=== PATIENT | male | born 1950 | race Caucasian/White ===

== ENCOUNTER 2017-06-22 14:00 | Outpatient (RCR) | payer MEDICARE, BC | END 2017-06-22 14:30 | disposition still patient (30) | LOC: PT 14:00 | DX: M54.5 Low back pain (principal); R53.1 Weakness ==

== ENCOUNTER 2018-01-13 14:26 | Outpatient (RCR) | payer MEDICARE, BC | END 2018-04-13 | disposition home or self-care (01) | LOC: PT | DX: M54.5 Low back pain (principal) | CPT/HCPCS: G8978-GP; G8979-GP ==

== ENCOUNTER → 2019-09-22 | Outpatient (CLI) | payer MEDICARE, BC ==
[2019-09-22 12:10] LABS: EOS # 0.1 (0.04-0.40); EOS % 2.7 % (0.0-4.0); HEMATOCRIT 48.2 % (42.0-52.0); HEMOGLOBIN 16.4 g/dL (13.5-18.0); LYMPH# 2.5 (1.50-4.00); MEAN CELL VOLUME 86 fl (78-100); MEAN CORPUSCULAR HEMOGLOBIN 29 pg (27-31); MEAN CORPUSCULAR HGB CONC 34 g/dL (33-37); MEAN PLATELET VOLUME 8.2 fl (7.4-10.4); MONO # 0.5 (0.20-0.80); NEU # 1.9 (1.40-6.50); PLATELET COUNT 208 K/mm3 (130-400); RED BLOOD COUNT 5.61 M/mm3 (4.20-5.60); RED CELL DISTRIBUTION WIDTH 13.7 % (11.5-14.5); WHITE BLOOD COUNT 5.1 K/mm3 (4.8-10.8)
[2019-09-22 12:23] LABS: ALBUMIN 4.2 g/dL (3.4-4.8)
[2019-09-22 12:24] LABS: CALCIUM 9.1 mg/dL (8.3-10.5)
[2019-09-22 12:26] LABS: TOTAL PROTEIN 7.4 g/dL (6.2-8.1)
[2019-09-22 12:27] LABS: TOTAL BILIRUBIN 0.9 mg/dL (0.2-1.2)
[2019-09-22 12:33] LABS: MAGNESIUM 1.79 mg/dL (1.60-2.60)
[2019-09-22 12:39] LABS: URINE APPEARANCE CLEAR; URINE BILIRUBIN NEGATIVE (NEGATIVE); URINE COLOR YELLOW; URINE GLUCOSE NEGATIVE (NEGATIVE); URINE KETONE NEGATIVE (NEGATIVE); URINE PROTEIN(semi-quant) 3+ mg/dL (NEGATIVE); URINE UROBILINOGEN NORMAL (NORMAL)
[2019-09-22 12:40] LABS: URINE BLOOD 250 ery/uL (NEGATIVE); URINE LEUKOCYTE ESTERASE NEGATIVE (NEGATIVE); URINE MUCUS PRESENT (NOT PRESENT); URINE NITRATE NEGATIVE (NEGATIVE)
[2019-09-22 13:19] LABS: ERYTHROCYTE SEDIMENTATION RATE 5 mm/hr (0-20)
[2019-09-22 23:07] LABS: TESTOSTERONE 227 ng/dL (221-716)
[2019-09-23 00:19] LABS: CREATININE OTHER SOURCE 349 mg/dL (())
== END ==
LOC: LAB 11:49
PROVIDERS: Internal Medicine
DX: Z12.5 Encounter for screening for malignant neoplasm of prostate (principal); Z12.11 Encounter for screening for malignant neoplasm of colon; I10 Essential (primary) hypertension; E11.9 Type 2 diabetes mellitus without complications; N52.9 Male erectile dysfunction, unspecified

== ENCOUNTER → 2019-09-27 | Outpatient (CLI) | payer MEDICARE, BC | LOC: LAB 13:42 | DX: Z12.11 Encounter for screening for malignant neoplasm of colon (principal) ==

== ENCOUNTER → 2019-10-06 | Outpatient (CLI) | payer MEDICARE, BC ==
[2019-10-06 12:11] LABS: URINE COLOR YELLOW
[2019-10-06 12:12] LABS: URINE APPEARANCE HAZY; URINE BILIRUBIN NEGATIVE (NEGATIVE); URINE GLUCOSE NEGATIVE (NEGATIVE); URINE KETONE NEGATIVE (NEGATIVE); URINE PROTEIN(semi-quant) 3+ mg/dL (NEGATIVE)
[2019-10-06 12:13] LABS: URINE BLOOD 250 ery/uL (NEGATIVE); URINE LEUKOCYTE ESTERASE NEGATIVE (NEGATIVE); URINE NITRATE NEGATIVE (NEGATIVE); URINE UROBILINOGEN NORMAL (NORMAL)
[2019-10-06 12:14] LABS: URINE MUCUS PRESENT (NOT PRESENT)
== END ==
LOC: LAB 11:16
PROVIDERS: Internal Medicine
DX: E11.9 Type 2 diabetes mellitus without complications (principal); N39.0 Urinary tract infection, site not specified

== ENCOUNTER → 2019-10-13 | Outpatient (CLI) | payer MEDICARE, BC | LOC: RAD 09:50 | DX: N28.1 Cyst of kidney, acquired (principal) | CPT/HCPCS: Q9965; Q9967 ==

== ENCOUNTER → 2020-06-17 | Outpatient (CLI) | payer MEDICARE, BC ==
[2020-06-17 15:33] LABS: EOS # 0.2 (0.04-0.40); EOS % 2.1 % (0.0-4.0); HEMATOCRIT 48.5 % (42.0-52.0); HEMOGLOBIN 16.5 g/dL (13.5-18.0); LYMPH# 2.4 (1.50-4.00); MEAN CELL VOLUME 87 fl (78-100); MEAN CORPUSCULAR HEMOGLOBIN 30 pg (27-31); MEAN CORPUSCULAR HGB CONC 34 g/dL (33-37); MEAN PLATELET VOLUME 8.6 fl (7.4-10.4); MONO # 0.7 (0.20-0.80); PLATELET COUNT 228 K/mm3 (130-400); RED BLOOD COUNT 5.59 M/mm3 (4.20-5.60); RED CELL DISTRIBUTION WIDTH 13.6 % (11.5-14.5); WHITE BLOOD COUNT 8.3 K/mm3 (4.8-10.8)
[2020-06-17 15:41] LABS: URINE APPEARANCE CLEAR; URINE BILIRUBIN NEGATIVE (NEGATIVE); URINE BLOOD 50 ery/uL (NEGATIVE); URINE COLOR YELLOW; URINE GLUCOSE NEGATIVE (NEGATIVE); URINE KETONE NEGATIVE (NEGATIVE); URINE NITRATE NEGATIVE (NEGATIVE); URINE PROTEIN(semi-quant) 1+ mg/dL (NEGATIVE); URINE UROBILINOGEN NORMAL (NORMAL)
[2020-06-17 15:42] LABS: ALBUMIN 4.3 g/dL (3.4-4.8); POTASSIUM 3.9 mmol/L (3.5-5.1); URINE LEUKOCYTE ESTERASE NEGATIVE (NEGATIVE); URINE MUCUS PRESENT (NOT PRESENT)
[2020-06-17 15:43] LABS: CALCIUM 9.4 mg/dL (8.3-10.5)
[2020-06-17 15:45] LABS: TOTAL PROTEIN 7.5 g/dL (6.2-8.1)
[2020-06-17 15:47] LABS: TOTAL BILIRUBIN 0.8 mg/dL (0.2-1.2)
== END ==
LOC: LAB 15:21
PROVIDERS: Internal Medicine
DX: I10 Essential (primary) hypertension (principal); E11.9 Type 2 diabetes mellitus without complications; K90.9 Intestinal malabsorption, unspecified

== ENCOUNTER → 2020-06-18 | Outpatient (CLI) | payer MEDICARE, BC | LOC: RAD 09:45 | DX: N28.1 Cyst of kidney, acquired (principal); E11.9 Type 2 diabetes mellitus without complications; N40.0 Benign prostatic hyperplasia without lower urinary tract symptoms; I10 Essential (primary) hypertension ==

== ENCOUNTER → 2020-09-25 | Outpatient (CLI) | payer MEDICARE ==
[2020-09-25 11:37] LABS: EOS # 0.1 (0.04-0.40); EOS % 1.2 % (0.0-4.0); HEMATOCRIT 49.9 % (42.0-52.0); HEMOGLOBIN 16.8 g/dL (13.5-18.0); LYMPH# 3.3 (1.50-4.00); MEAN CELL VOLUME 86 fl (78-100); MEAN CORPUSCULAR HEMOGLOBIN 29 pg (27-31); MEAN CORPUSCULAR HGB CONC 34 g/dL (33-37); MEAN PLATELET VOLUME 8.4 fl (7.4-10.4); MONO # 0.6 (0.20-0.80); NEU # 4.5 (1.40-6.50); PLATELET COUNT 202 K/mm3 (130-400); RED BLOOD COUNT 5.82 M/mm3 (4.20-5.60); RED CELL DISTRIBUTION WIDTH 13.4 % (11.5-14.5); WHITE BLOOD COUNT 8.6 K/mm3 (4.8-10.8)
[2020-09-25 11:43] LABS: ALBUMIN 4.2 g/dL (3.4-4.8); POTASSIUM 3.7 mmol/L (3.5-5.1)
[2020-09-25 11:44] LABS: CALCIUM 9.3 mg/dL (8.3-10.5)
[2020-09-25 11:47] LABS: TOTAL BILIRUBIN 1.4 mg/dL (0.2-1.2)
[2020-09-25 11:52] LABS: MAGNESIUM 1.85 mg/dL (1.60-2.60)
[2020-09-25 12:01] LABS: URINE APPEARANCE CLEAR; URINE COLOR YELLOW
[2020-09-25 12:02] LABS: URINE BILIRUBIN NEGATIVE (NEGATIVE); URINE BLOOD 50 ery/uL (NEGATIVE); URINE GLUCOSE NEGATIVE (NEGATIVE); URINE KETONE NEGATIVE (NEGATIVE); URINE LEUKOCYTE ESTERASE NEGATIVE (NEGATIVE); URINE NITRATE NEGATIVE (NEGATIVE); URINE PROTEIN(semi-quant) TRACE mg/dL (NEGATIVE); URINE UROBILINOGEN NORMAL (NORMAL)
[2020-09-25 22:14] LABS: TESTOSTERONE 220 ng/dL (221-716)
== END ==
LOC: LAB 11:05
PROVIDERS: Internal Medicine
DX: Z12.5 Encounter for screening for malignant neoplasm of prostate (principal); Z12.11 Encounter for screening for malignant neoplasm of colon; E11.9 Type 2 diabetes mellitus without complications; K90.9 Intestinal malabsorption, unspecified; R79.89 Other specified abnormal findings of blood chemistry

== ENCOUNTER → 2020-09-30 | Outpatient (CLI) | payer MEDICARE ==
[~2020-09-30] MED LIST: AMARYL4 M1 PO; CELEBREX 200MG200 MG PO; K-TAB20 MEQ PO; NORVASC 10MG10 MG PO; SINGULAIR 110 MG/TAB PO; VITAMIN C PUR1000 MG PO; VITAMIN D31250 MCG PO; ZINC50 M3 PO
== END ==
LOC: LAB 11:04
DX: Z12.11 Encounter for screening for malignant neoplasm of colon (principal)

== ENCOUNTER → 2020-11-18 | Outpatient (CLI) | payer MEDICARE | LOC: LAB 11:33 | DX: L57.0 Actinic keratosis (principal) ==

== ENCOUNTER → 2020-12-19 | Outpatient (CLI) | payer MEDICARE | LOC: RAD 12-18 10:00 | PROVIDERS: Urology | DX: N28.1 Cyst of kidney, acquired (principal); Z90.49 Acquired absence of other specified parts of digestive tract | CPT/HCPCS: Q9967 ==

== ENCOUNTER 2021-04-25 01:38 | Emergency (ER) | payer MEDICARE ==
[~2021-04-25] VITALS: Ht 188 cm; Wt 121.4 kg
[2021-04-25] MEDS ORDERED: SINGULAIR 110 MG/TAB PO (02:08)
[2021-04-25] MEDS ORDERED: NORVASC 10MG10 MG PO (02:08)
[2021-04-25] MEDS ORDERED: K-TAB20 MEQ PO (02:09)
[2021-04-25] MEDS ORDERED: AMARYL4 M1 PO (02:09)
[2021-04-25] MEDS ORDERED: VITAMIN D31250 MCG PO (02:10)
[2021-04-25] MEDS ORDERED: ZINC50 M3 PO (02:10)
[2021-04-25] MEDS ORDERED: VITAMIN C PUR1000 MG PO (02:10)
[2021-04-25] MEDS ORDERED: CELEBREX 200MG200 MG PO (02:11)
[2021-04-25 02:14] LABS: BASO # 0.04 (0.02-0.10); EOS # 0.18 (0.04-0.40); EOS % 1.7 % (0.0-4.0); HEMATOCRIT 44.1 % (42.0-52.0); HEMOGLOBIN 15.4 g/dL (13.5-18.0); LYMPH# 3.33 (1.50-4.00); MEAN CELL VOLUME 87 fl (78-100); MEAN CORPUSCULAR HEMOGLOBIN 30 pg (27-31); MEAN CORPUSCULAR HGB CONC 35 g/dL (33-37); MEAN PLATELET VOLUME 8.6 fl (7.4-10.4); MONO # 0.77 (0.20-0.80); NEU # 6.01 (1.40-6.50); PLATELET COUNT 195 K/mm3 (130-400); RED CELL DISTRIBUTION WIDTH 13.4 % (11.5-14.5); WHITE BLOOD COUNT 10.3 K/mm3 (4.8-10.8)
[2021-04-25 02:28] LABS: ALBUMIN 4.1 g/dL (3.4-4.8); POTASSIUM 3.7 mmol/L (3.5-5.1)
[2021-04-25 02:29] LABS: CALCIUM 9.6 mg/dL (8.3-10.5)
[2021-04-25 02:31] LABS: TOTAL PROTEIN 7.1 g/dL (6.2-8.1)
[2021-04-25 02:32] LABS: TOTAL BILIRUBIN 0.6 mg/dL (0.2-1.2)
[2021-04-25 02:51] LABS: PROTHROMBIN TIME 9.9 SECONDS (9.0-12.0)
[2021-04-25 02:54] LABS: D-DIMER 0.72 mg/L FEU (0.15-0.50)
[2021-04-25 05:35] VITALS: BP 151/81
== END 2021-04-25 05:35 | disposition home or self-care (01) ==
LOC: ED 01:38
PROVIDERS: Nurse Practitioner Family
DX: N17.9 Acute kidney failure, unspecified (principal); E11.9 Type 2 diabetes mellitus without complications; I10 Essential (primary) hypertension; I47.1 Supraventricular tachycardia; E66.9 Obesity, unspecified; I25.10 Atherosclerotic heart disease of native coronary artery without angina pectoris; Z79.899 Other long term (current) drug therapy; Z79.84 Long term (current) use of oral hypoglycemic drugs; Z68.34 Body mass index [BMI] 34.0-34.9, adult
CPT/HCPCS: J0153; J7030; Q9967

== ENCOUNTER → 2021-04-29 | Outpatient (CLI) | payer MEDICARE ==
[2021-04-29 12:05] LABS: ALBUMIN 4.3 g/dL (3.4-4.8)
[2021-04-29 12:06] LABS: POTASSIUM 3.8 mmol/L (3.5-5.1)
[2021-04-29 12:10] LABS: TOTAL BILIRUBIN 1.3 mg/dL (0.2-1.2)
[2021-04-30 00:21] LABS: FOLLICLE STIMULATING HORMONE 5.4 mIU/mL (1.0-12.0); LUTENIZING HORMONE 2.1 mIU/mL (0.6-12.1); PROLACTIN AMS 42.5 ng/mL (3.5-19.4)
== END ==
LOC: LAB 11:38
PROVIDERS: Internal Medicine
DX: E11.9 Type 2 diabetes mellitus without complications (principal); K90.9 Intestinal malabsorption, unspecified; R79.89 Other specified abnormal findings of blood chemistry

== ENCOUNTER → 2021-05-01 | Outpatient (CLI) | payer MEDICARE | LOC: RAD 09:42 | DX: I47.1 Supraventricular tachycardia (principal); I36.1 Nonrheumatic tricuspid (valve) insufficiency ==

== ENCOUNTER → 2021-05-16 | Outpatient (CLI) | payer MEDICARE ==
[2021-05-16 15:23] LABS: BASO # 0.04 K/mm3 (0.02-0.10); EOS % 0.8 % (0.0-4.0); LYMPH# 2.46 K/mm3 (1.50-4.00); MEAN CELL VOLUME 88 fl (78-100); MEAN CORPUSCULAR HEMOGLOBIN 30 pg (27-31); MEAN CORPUSCULAR HGB CONC 34 g/dL (33-37); MEAN PLATELET VOLUME 8.3 fl (7.4-10.4); MONO # 0.71 K/mm3 (0.20-0.80); NEU # 8.57 K/mm3 (1.40-6.50); PLATELET COUNT 210 K/mm3 (130-400); RED BLOOD COUNT 5.37 M/mm3 (4.20-5.60); RED CELL DISTRIBUTION WIDTH 13.3 % (11.5-14.5); WHITE BLOOD COUNT 11.9 K/mm3 (4.8-10.8)
[2021-05-16 15:38] LABS: ALBUMIN 4.1 g/dL (3.4-4.8); POTASSIUM 3.7 mmol/L (3.5-5.1)
[2021-05-16 15:39] LABS: CALCIUM 10.1 mg/dL (8.3-10.5); PROTHROMBIN TIME 10.3 SECONDS (9.0-12.0)
[2021-05-16 15:42] LABS: TOTAL BILIRUBIN 1.4 mg/dL (0.2-1.2)
[2021-05-16 15:47] LABS: MAGNESIUM 2.01 mg/dL (1.60-2.60)
[2021-05-16 15:56] LABS: URINE APPEARANCE HAZY; URINE BILIRUBIN NEGATIVE (NEGATIVE); URINE BLOOD NEGATIVE (NEGATIVE); URINE COLOR YELLOW; URINE GLUCOSE NEGATIVE (NEGATIVE); URINE KETONE NEGATIVE (NEGATIVE); URINE LEUKOCYTE ESTERASE TRACE (NEGATIVE); URINE MUCUS PRESENT (NOT PRESENT); URINE NITRATE NEGATIVE (NEGATIVE); URINE PROTEIN(semi-quant) 1+ mg/dL (NEGATIVE); URINE UROBILINOGEN NORMAL (NORMAL)
== END ==
LOC: RAD 14:41
PROVIDERS: Internal Medicine
DX: Z01.818 Encounter for other preprocedural examination (principal)

== ENCOUNTER 2021-06-06 13:48 | Outpatient (RCR) | payer MEDICARE | END 2021-07-02 17:00 | disposition home or self-care (01) | LOC: PT 13:48 | DX: M17.12 Unilateral primary osteoarthritis, left knee (principal) ==

== ENCOUNTER 2021-07-18 10:52 | Emergency (ER) | payer MEDICARE ==
[~2021-07-18] VITALS: Wt 121.4 kg
[2021-07-18 12:03] LABS: URINE APPEARANCE CLEAR; URINE COLOR YELLOW
[2021-07-18 12:04] LABS: URINE BILIRUBIN NEGATIVE (NEGATIVE); URINE BLOOD TRACE (NEGATIVE); URINE GLUCOSE NEGATIVE (NEGATIVE); URINE KETONE NEGATIVE (NEGATIVE); URINE LEUKOCYTE ESTERASE NEGATIVE (NEGATIVE); URINE MUCUS PRESENT (NOT PRESENT); URINE NITRATE NEGATIVE (NEGATIVE); URINE PROTEIN(semi-quant) 2+ mg/dL (NEGATIVE); URINE UROBILINOGEN NORMAL (NORMAL); URINE WBC 0-1 /hpf (0-3)
[2021-07-18 12:22] LABS: HEMATOCRIT 45.7 % (42.0-52.0); HEMOGLOBIN 15.1 g/dL (13.5-18.0); LYMPH# 1.11 K/mm3 (1.50-4.00); MEAN CELL VOLUME 89 fl (78-100); MEAN CORPUSCULAR HEMOGLOBIN 29 pg (27-31); MEAN CORPUSCULAR HGB CONC 33 g/dL (33-37); MEAN PLATELET VOLUME 9.3 fl (7.4-10.4); MONO # 0.35 K/mm3 (0.20-0.80); NEU # 7.96 K/mm3 (1.40-6.50); PLATELET COUNT 181 K/mm3 (130-400); RED BLOOD COUNT 5.16 M/mm3 (4.20-5.60); RED CELL DISTRIBUTION WIDTH 12.8 % (11.5-14.5); WHITE BLOOD COUNT 9.5 K/mm3 (4.8-10.8)
[2021-07-18 12:27] LABS: ALBUMIN 3.8 g/dL (3.4-4.8); POTASSIUM 3.4 mmol/L (3.5-5.1); SODIUM 140 mmol/L (136-145)
[2021-07-18 12:28] LABS: CALCIUM 9.1 mg/dL (8.3-10.5)
[2021-07-18 12:29] LABS: GLUCOSE 151 mg/dL (75-110); TOTAL PROTEIN 6.7 g/dL (6.2-8.1)
[2021-07-18 12:30] LABS: CARBON DIOXIDE 19 mmol/L (23-31)
[2021-07-18 12:31] LABS: TOTAL BILIRUBIN 0.6 mg/dL (0.2-1.2)
[2021-07-18 12:35] LABS: AST-SGOT 22 U/L (5-34)
[2021-07-18 12:36] LABS: ALT/SGPT 31 U/L (0-55)
[2021-07-18 12:44] LABS: TROPONIN-I < 0.03 ng/mL (<0.030)
[2021-07-18 12:53] LABS: D-DIMER 1.26 mg/L FEU (0.15-0.50)
[2021-07-18 16:30] VITALS: BP 154/92
== END 2021-07-18 16:30 | disposition other institution (70) ==
LOC: ED 10:52
PROVIDERS: Nurse Practitioner
DX: U07.1 COVID-19 (principal); J12.82 Pneumonia due to coronavirus disease 2019; E11.9 Type 2 diabetes mellitus without complications; I10 Essential (primary) hypertension; E66.9 Obesity, unspecified; Z79.84 Long term (current) use of oral hypoglycemic drugs; Z79.899 Other long term (current) drug therapy
CPT/HCPCS: J1100; J1956; J3480; Q9967

== ENCOUNTER 2021-07-18 16:17 | Inpatient (IN) | payer MEDICARE ==
[~2021-07-18] VITALS: Ht 180.3 cm; Wt 118.4 kg
--- NOTE | 2021-07-18 19:52 | NUR ---
PT TURNS TIMBER DEADENER LIGHT TO ALERT NURSING THAT IV PUMP IS ALARMING. ASSESMENT PREFORMED. PT REQUEST TO HAVE URNAL DUMPED AN HE NEEDS TO USE THE TOLIET. 400CC PALE CLEAR URINE OUT AT THIS TIME. PT IS OFFERED TYLENOL BUT REFUSES IT SAYING HE HAS TAKEN TO MUCH TYLENOL LATLEY AND HAD NO PAIN AT THIS TIME. BEFORE LEAVING ROOM PT DENIES ANY NEEDS AT THIS TIME.
--- NOTE | 2021-07-18 21:04 | NUR ---
REPORTED CKPG=[id number] SANCHEZ, RECIVED OREDERS FOR 4 UNITS INSULIN
[2021-07-18 22:15] VITALS: BP 160/90
[2021-07-19 02:15] VITALS: BP 153/85
--- NOTE | 2021-07-19 04:34 | NUR ---
SaO2 alarm sounding monitor shows 85%. Enetered pt room and simple mask he had been wearing is on his forehead and not in place. Pt is woken up at this time, he states "I forgot to put it back down after I got a drink." Offered to put a nasal canula on pt that way he doesnt have to remeber to put his O2 back on. Pt refuses to let nurse remove simple mask and replace it with nasal canula. Attempted to explain to pt that he would need to frame changer to nasal canula at some point, pt showes no intrest at this time. After O2 was replace SaO2= 93%
[2021-07-19 05:55] VITALS: BP 161/63
--- NOTE | 2021-07-19 07:00 | NUR ---
REPORT RECEVIED FROM BRANDY DURAN. PATIENT IS CURRENTLY RESTING IN BED WITH EYES CLOSED. BED IN LOWEST LOCKED POSTION. CALL LIGHT WITHIN REACH.
[2021-07-19 10:11] VITALS: BP 162/96
--- NOTE | 2021-07-19 11:00 | NUR ---
PATIENT PLEASENT AND COOPERATIVE WITH CARES. KATHINET DENIES SOB OR TROUBLE BREATHING WHILE RESTING. PATIENT DOES OFFER COMPLAINT OF SOB UPON WALKING TO BATHROOM. PATIENT O2 REAMINS STABLE AT 92% ON 6L VIA MASK. PATIENT IS USING NASAL CANULA FOR MEALS AND MASK AT ALL OTHER TIMES. PATIENT DENIES OTHER NEEDS OR COMPLAINTS AT THIS TIME. PATIENT IS CURRENTLY RESTING IN BED WITH IPAD. BED IN LOWEST LOCKED POSTION. CALL LIGHT WITHIN REACH.
--- NOTE | 2021-07-19 13:00 | NUR ---
PATIENT RESTING IN BED WITH TV ON. PATIENT REQUESTED TO REMAIN ON NASAL CANULA AFTER MEAL. PATIENT O2 REAMINS STABLE AT 92% ON 6L. PATIENT OFFERS NO NEEDS OR COMPLAINTS AT THIS TIME. BED IN LOWEST LOCKED POSTION, CALL LIGHT WITHIN REACH.
[2021-07-19 14:00] VITALS: BP 154/78
--- NOTE | 2021-07-19 16:14 | NUR ---
Pt awake and alert and sitting up on side of bed for comfort, orthopneic; oxygen @ 6 L/min by mask. Denies discomfort except for dry and chaffed lips. Will seek order for lip balm. IV Levaquin administered & infusing at this time. Call light in reach and pt understands use. No requests.
[2021-07-19 17:44] VITALS: BP 164/72
--- NOTE | 2021-07-19 19:00 | NUR ---
Report received from Ketty KENNEDY.
--- NOTE | 2021-07-19 19:27 | NUR ---
FS glucose 304 ac supper. Sliding scale insulin new order received & admin. Loading dose Remdesivir administered by BRANDY Pimentel. Pt christopher. well. Remains with oxygen 6 L/min. Stand-by assist to restroom to void; steady gait, no dyspnea. Sitting in high-back chair per request with mobility alarm for patient safety. Call light in reach. Tele remains NSR/tachy 90's and SaO2 96% with oxygen 6 L/min. Report given to oncoming shift nurseAlina.
--- NOTE | 2021-07-19 20:30 | NUR ---
Patient sits up on the side of bed. Alert and oriented x 4. Denies pain. Pleasnant. HS med/insulin reviewed and given. States occasional productive couph yellow sputum. States some shortness of breath with exertion. 02 on 6l per mask.
[2021-07-19 21:46] VITALS: BP 144/84
[2021-07-20 02:06] VITALS: BP 169/81
--- NOTE | 2021-07-20 02:15 | NUR ---
Patient awake and just returned from the bathroom. Sits up on side of bed. Sa02 90% on return from the bathroom and increased to 95 after 20 minutes on 6l per mask. Denies needs at this time. VSS.
--- NOTE | 2021-07-20 04:49 | NUR ---
Patient resting in bed and awakened for am vitals and med. Denies needs. Has occasional dry couph.
[2021-07-20 06:21] VITALS: BP 140/80
--- NOTE | 2021-07-20 07:00 | NUR ---
REPORT RECEVIED FROM BRANDY LARRY. PATIENT CURRENTLY RESTING IN BED WITH EYES CLOSED. BED IN LOWEST LOCKED POSTION. CALL LIGHT WITHIN REACH.
--- NOTE | 2021-07-20 08:15 | NUR ---
NURSE NOTIFIED BY DOMESTIC MAID THAT PATIENT WAS LOWERED TO THE FLOOR. DOMESTIC MAID STATED PATIENT WAS WALKING TO BATHROOM WITH WALKER AND ASSISTANCE FROM DOMESTIC MAID. PATIENT STATES "MY LEG GAVE OUT". PATIENT ASSISTED TO STANDING BY DOMESTIC MAID AND NURSE. NO INJURIES NOTED, PATIENT DENIED PAIN OR DISCOMFORT. PATIENT THEN ASSISTED TO BATHROOM WITH OUR FURTHER INCIDENT.
--- NOTE | 2021-07-20 08:27 | NUR ---
Patient up to bathroom. Oxygen saturation 84% on oxygen at 6 liters via nasal cannula.
[2021-07-20 10:00] VITALS: BP 120/77
--- NOTE | 2021-07-20 11:00 | NUR ---
PATIENT PLEASENT AND COOPERATIVE WITH CARES. O2 STAT REAMAIN STABLE ON 6L VIA SIMPLE MASK. PATIENT WEARS NASAL CANNULA FOR MEALS. PATIENT DENIES NEEDS OR COMPLAINTS AT THIS TIME; CURRENTLY RESTING IN BED WITH TV ON. CALL LIGHT WITHIN REACH.
[2021-07-20 11:51] LABS: HEMATOCRIT 43.3 % (42.0-52.0); HEMOGLOBIN 14.4 g/dL (13.5-18.0); MEAN CELL VOLUME 89 fl (78-100); MEAN CORPUSCULAR HEMOGLOBIN 29 pg (27-31); MEAN CORPUSCULAR HGB CONC 33 g/dL (33-37); MEAN PLATELET VOLUME 9.2 fl (7.4-10.4); MONO # 0.43 K/mm3 (0.20-0.80); NEU # 10.09 K/mm3 (1.40-6.50); PLATELET COUNT 208 K/mm3 (130-400); RED BLOOD COUNT 4.89 M/mm3 (4.20-5.60); RED CELL DISTRIBUTION WIDTH 12.5 % (11.5-14.5); WHITE BLOOD COUNT 11.3 K/mm3 (4.8-10.8)
[2021-07-20 12:00] LABS: ALBUMIN 3.5 g/dL (3.4-4.8)
[2021-07-20 12:02] LABS: CALCIUM 8.9 mg/dL (8.3-10.5)
[2021-07-20 12:03] LABS: TOTAL PROTEIN 6.2 g/dL (6.2-8.1)
[2021-07-20 12:05] LABS: TOTAL BILIRUBIN 0.5 mg/dL (0.2-1.2)
[2021-07-20 14:00] VITALS: BP 135/77
--- NOTE | 2021-07-20 16:00 | NUR ---
PATIENT REAMINS PLEASENT AND COOPERATIVE WITH CARES. PATIENT HAS ASKED SEVERAL QUESTIONS ABOUT COVID DX. ALL QUESTIONS ANSWERED. PATIENT O2 STAT REMAINS STABLE ON 6L OF O2 VIA SIMPLE MASK. PATIENT DENIES FURTHER NEEDS OR COMPLAINTS AT THIS TIME. PATIENT SITTING UP IN BED, CALL LIGHT WITHIN REACH.
[2021-07-20 17:40] VITALS: BP 141/84
--- NOTE | 2021-07-20 19:00 | NUR ---
Report received from Leroy KENNEDY.
--- NOTE | 2021-07-20 21:15 | NUR ---
Patient sitting up on side of bed. o2 on 6l per mask. Reports some shortness of breath with activity and occasional productive couph. Denies pain. HS meds along with insulin reviewed and given. Snack of pudding given.
[2021-07-20 21:34] VITALS: BP 142/87
--- NOTE | 2021-07-21 03:00 | NUR ---
Patients sa02 84%. Patient resting soundly with eyes closed and o2 off. Awakened and reminded to put o2 mask on-does and o2 sat increases to 92-93% on 6l per mask. States he'd just returned from the bathroom.
[2021-07-21 05:39] VITALS: BP 150/85
--- NOTE | 2021-07-21 09:18 | NUR ---
Patient resting in bed. A&Ox4, in somber mood with staff. Patient upset he wasn't able to golf in the warm weather and is concerned his knee has gotten weak. No c/o pain or discomfort. Bed in lowest and locked position. Call light within reach.
[2021-07-21 10:30] VITALS: BP 122/76
--- NOTE | 2021-07-21 13:30 | NUR ---
Erica called and pending auth # [id number] given for this inpt hospital stay. Erica will contact us for further clinicals.
[2021-07-21 14:00] VITALS: BP 134/74
--- NOTE | 2021-07-21 14:55 | NUR ---
Clinicals (H & P, progres notes, labs, imaging) faxed to [phone] for pending auth #[id number]. Further clinical questions/info can be called to Juli Luke at ext [phone].
--- NOTE | 2021-07-21 16:45 | NUR ---
Received approval for inpatient stay (auth # [id number]) via phone voicemail from [facility]. Instructions received to notify them of D/C date and disposition via Fax - [phone].
[2021-07-21 18:02] VITALS: BP 147/58
--- NOTE | 2021-07-21 19:00 | NUR ---
Report received from Alka NAVA.
--- NOTE | 2021-07-21 21:00 | NUR ---
Patient sitting up on side of bed on face time with son. Alert and oriented x 4. Denies pain. States occasional dry couph occasional sputum. No distress noted. Has oxygen mask on while talking and reapplies. Sa02 96% on 6lpnc.
[2021-07-21 21:25] VITALS: BP 149/80
--- NOTE | 2021-07-22 03:10 | NUR ---
Patient calls for ice water-given. States he's been sleeping well since 0 and just woke up without mask on. Sao2 has been running 99% on 6l per simple mask until 0215 which read 93%, 0245 91%, 0300 90% and 0315 ended at 94% when patient sitting up with mask on for "5 minutes". Denies itching or need for benadryl at this time.
[2021-07-22 05:51] VITALS: BP 145/83
[2021-07-22 08:05] LABS: ALBUMIN 3.2 g/dL (3.4-4.8); BASO # 0.01 K/mm3 (0.02-0.10); EOS # 0.03 K/mm3 (0.04-0.40); EOS % 0.3 % (0.0-4.0); HEMATOCRIT 43.8 % (42.0-52.0); HEMOGLOBIN 14.4 g/dL (13.5-18.0); LYMPH# 1.15 K/mm3 (1.50-4.00); MEAN CELL VOLUME 89 fl (78-100); MEAN CORPUSCULAR HEMOGLOBIN 29 pg (27-31); MEAN CORPUSCULAR HGB CONC 33 g/dL (33-37); MEAN PLATELET VOLUME 9.2 fl (7.4-10.4); MONO # 0.65 K/mm3 (0.20-0.80); NEU # 8.09 K/mm3 (1.40-6.50); PLATELET COUNT 208 K/mm3 (130-400); POTASSIUM 3.6 mmol/L (3.5-5.1); RED CELL DISTRIBUTION WIDTH 12.4 % (11.5-14.5)
[2021-07-22 08:06] LABS: CALCIUM 8.7 mg/dL (8.3-10.5)
[2021-07-22 08:07] LABS: TOTAL PROTEIN 5.7 g/dL (6.2-8.1)
[2021-07-22 08:09] LABS: TOTAL BILIRUBIN 0.5 mg/dL (0.2-1.2)
[2021-07-22 09:41] VITALS: BP 130/79
[2021-07-22 13:28] VITALS: BP 110/67
[2021-07-22 18:13] VITALS: BP 131/81
--- NOTE | 2021-07-22 20:51 | NUR ---
Report received from Alka NAVA. Patient resting in room on EOB. Oxygen in place per NC at 3L. SAO2 92-94% Up ad-milena. States he does get SOA at time with exertion or excessive talking but reports "it's much better". Use I.S. and pulls 1500 ML x5 then coughs. Cough is mainly dry. States once in a while will produce a small amount of sputum but not much. BS 321. 8 Units SS Humalog given. Snack of PB, rekha crackers and sugar free jello provided. Assessment completed. Talkative and cooperative with cares. Denies wants or needs at this time. Remains on isolation for COVID.
[2021-07-22 22:24] VITALS: BP 137/75
[2021-07-23 02:00] VITALS: BP 141/84
--- NOTE | 2021-07-23 02:12 | NUR ---
Resting quietly. SAO2 94-95% on 3L/NC. No signs of distress. Up ad-milena in room.
[2021-07-23 05:20] VITALS: BP 142/91
--- NOTE | 2021-07-23 05:22 | NUR ---
AM medication taken and vital signs obtained. SAO2 94% on 3L/Oxygen. Desats with coughing, coughs when getting up and OOB. Denies pain or needs at this time.
--- NOTE | 2021-07-23 07:20 | NUR ---
Report to Sugar NAVA.
[2021-07-23 09:51] VITALS: BP 133/76
[2021-07-23 14:16] VITALS: BP 137/63
--- NOTE | 2021-07-23 17:54 | NUR ---
sent clinicals to [facility] for clinical review to go to [facility]. #[phone]. fax# [phone]
[2021-07-23 18:09] VITALS: BP 130/86
--- NOTE | 2021-07-23 19:04 | NUR ---
Patient has remained stable through the shift. He does cough with ambulation. Cough is mostly nonproductive. He ambulates in room w/o use of assistance, gait is steady. He denies pain. He. has remained on oxygen, lowered to 2L NC. Medications administered per OCT.
[2021-07-23 22:34] VITALS: BP 145/80
--- NOTE | 2021-07-24 04:30 | NUR ---
PATIENTS SATS HAVE BEEN >94% ALL NIGHT ON THE 2L OF OXYGEN PER NASAL CANNULA AND HAS EVEN BEEN HIGH 99%, OXYGEN REDUCED TO 1.5 LITERS AT THIS TIME, WILL CONTINUE TO MONITOR, PATIENT CLAIMS HE HAS BEEN STARTING TO FEEL BETTER AND DOES NOT FEEL SHORT OF BREATH DURING AMBULATATION HE HAD BEEN,
[2021-07-24 05:54] VITALS: BP 129/85
[2021-07-24 10:15] VITALS: BP 124/85
--- NOTE | 2021-07-24 10:25 | NUR ---
Patient sitting on edge of bed. He reports he slept well last night and eager to go home today. A&Ox4, O2 95% on 1L per NC. No c/o pain or discomfort. Ate all of breakfast. States, "I'm going to work on paying bills." Bed in lowest and locked position. Call light within reach.
--- NOTE | 2021-07-24 12:56 | NUR ---
Oxygen removed from patient at this time. Current O2 Sat 93% on RA. Monitor for 24 hours prior to discharge per Dr. Melgar.
--- NOTE | 2021-07-24 13:00 | NUR ---
OK to keep IV, 20ga in left FA for next 24 hours, per Dr. Melgar.
--- NOTE | 2021-07-24 13:47 | NUR ---
Mr. Geller does not qualify for oxygen at this time. Per nursing oxygen saturation on room air at rest is 97%. Oxygen saturation with ambulation is 96%. Oxygen saturation with oxygen @1 lpern/c while ambulating is 96%. Addy's Faina Geller ([phone]) is a retired RN. She is working for [employer] here in [place] and states that she will be able to provide his care while at home. Since Yimi's oxygen demands at this time do not warrant oxygen at home we will keep Yimi overnight and re-evaluate tomorrow before discharging home.
[2021-07-24 14:25] VITALS: BP 124/74
[2021-07-24 18:20] VITALS: BP 125/84
--- NOTE | 2021-07-24 20:47 | NUR ---
[employer] 2012 noted tele alarming pt tele show heart reate of 167. Assesed pt denies feeling any racing heart rate or palpitations, no pain is reported. Pt is sitting watching football on TV. Dr Melgar of heart rate, recived orders for EKG, troponin and Metoperol 50mg po. While pt was getting ready for EKG pt states he can feel his heart racing now that nursing has pointed it out to him. Pt reports that a few months ago he had similar problems after drinking a [place] with caffine. During EKG pt heart rate decreased to sinus rate of 76. Dr. Melgar notified of change in heart rate, metoperol was held at this time.
--- NOTE | 2021-07-24 21:31 | NUR ---
Sitting on EOB. Patient watching TV. States "feeling fine". Worried about episode of SVT keeping him from going home tomorrow. States "I drank 2 big glasses of tea and I have done this before if I drink alot of caffeine. Currently HR 88 NSR. SAO2 93-96% on RA. INT patent to LFA. Assessment completed. Fresh water provided. Instructed on Dr. Pack orders that if episode happens again to try and bear down to decrease HR. Verbalizes understanding. Remains on Isolation for COVID.
[2021-07-24 21:54] VITALS: BP 146/83
--- NOTE | 2021-07-25 01:17 | NUR ---
Resting quietly. SAO2 91% on RA HR 70's. No further episodes of SVT.
--- NOTE | 2021-07-25 03:38 | NUR ---
SAO2 has remained above 90% all night. Currently 95-96% on RA.
[2021-07-25 06:04] VITALS: BP 124/78
--- NOTE | 2021-07-25 06:18 | NUR ---
Patient states he hasn't sleep well. "up going to the bathroom". SAO2 remained above 90% on RA. Would desat to 87-88% very briefly when up to BR.
--- NOTE | 2021-07-25 06:56 | NUR ---
Report to [facility] CREATIVE ARTS THERAPIST.
--- NOTE | 2021-07-25 07:00 | NUR ---
REPORT RECEIVED FROM BRENT TOBIN. PATIENT CURRENTLY SITTING ON SIDE OF BED. CALL LIGHT WITHIN REACH.
--- NOTE | 2021-07-25 09:08 | NUR ---
Tele D/Aram at this time.
--- NOTE | 2021-07-25 09:30 | NUR ---
DISCHARGE INSTRUCTIONS RECEIVED FROM PROVIDER. PATIENT AWARE AND VERBILIZED UNDERSTANDING.
--- NOTE | 2021-07-25 09:50 | NUR ---
PATIENT CONTACTED AND MADE AWARE OF PATIENT DISCHARGE. WILL PICKUP PT AT 1100. PATIENT VERBILIZED UNDERSTANDING.
[2021-07-25] MEDS ORDERED: DECADRON6 M1 PO (09:57)
[2021-07-25 10:00] VITALS: BP 143/66
--- NOTE | 2021-07-25 11:13 | NUR ---
DISCHARGE INSTRUCTIONS REVIEWED WITH PATIENT, PATIENT VERBILIZED UNDERSTANDING. ALL PATIENT BELONGINGS SENT HOME WITH PATIENT. PATIENT DISCHARGED HOME VIA WC IN CARE OF .
== END 2021-07-25 11:12 | disposition swing bed (61) | DRG 177 ==
LOC: MED/SURG 16:17
PROVIDERS: Family Medicine; Nurse Practitioner; ADMIT Nurse Practitioner
PROC: XW033E5 Introduction of Remdesivir Anti-infective into Peripheral Vein, Percutaneous Approach, New Technology Group 5 (ICD-10-PCS; principal; 2021-07-18)
PROC: 3E0DX3Z Introduction of Anti-inflammatory into Mouth and Pharynx, External Approach (ICD-10-PCS; 2021-07-18)
DX: U07.1 COVID-19 (principal); J12.82 Pneumonia due to coronavirus disease 2019; I47.1 Supraventricular tachycardia; K90.9 Intestinal malabsorption, unspecified; I10 Essential (primary) hypertension; E11.9 Type 2 diabetes mellitus without complications; E55.9 Vitamin D deficiency, unspecified; E66.9 Obesity, unspecified; E87.6 Hypokalemia; Z96.641 Presence of right artificial hip joint; Z90.49 Acquired absence of other specified parts of digestive tract; Z88.0 Allergy status to penicillin
CPT/HCPCS: J1100; J1650; J1815; J1956; J7050

== ENCOUNTER → 2021-10-20 | Outpatient (CLI) | payer MEDICARE ==
[~2021-10-20] MED LIST changes: +DECADRON6 M1 PO
[2021-10-20 13:07] LABS: BASO # 0.03 K/mm3 (0.02-0.10); EOS # 0.15 K/mm3 (0.04-0.40); EOS % 1.6 % (0.0-4.0); HEMATOCRIT 50.1 % (42.0-52.0); HEMOGLOBIN 16.4 g/dL (13.5-18.0); LYMPH# 2.52 K/mm3 (1.50-4.00); MEAN CELL VOLUME 86 fl (78-100); MEAN CORPUSCULAR HEMOGLOBIN 28 pg (27-31); MEAN CORPUSCULAR HGB CONC 33 g/dL (33-37); MEAN PLATELET VOLUME 8.7 fl (7.4-10.4); MONO # 0.73 K/mm3 (0.20-0.80); NEU # 5.69 K/mm3 (1.40-6.50); PLATELET COUNT 208 K/mm3 (130-400); WHITE BLOOD COUNT 9.1 K/mm3 (4.8-10.8)
[2021-10-20 13:15] LABS: ALBUMIN 4.2 g/dL (3.4-4.8)
[2021-10-20 13:16] LABS: CALCIUM 9.5 mg/dL (8.3-10.5)
[2021-10-20 13:19] LABS: TOTAL BILIRUBIN 0.8 mg/dL (0.2-1.2); URINE APPEARANCE HAZY; URINE COLOR YELLOW
[2021-10-20 13:20] LABS: URINE BILIRUBIN NEGATIVE (NEGATIVE); URINE GLUCOSE NEGATIVE (NEGATIVE); URINE KETONE NEGATIVE (NEGATIVE); URINE NITRATE NEGATIVE (NEGATIVE); URINE PROTEIN(semi-quant) TRACE (NEGATIVE); URINE UROBILINOGEN NORMAL (NORMAL)
[2021-10-20 13:21] LABS: URINE BLOOD TRACE (NEGATIVE)
[2021-10-20 13:22] LABS: URINE LEUKOCYTE ESTERASE NEGATIVE (NEGATIVE)
[2021-10-20 13:23] LABS: URINE MUCUS PRESENT (NOT PRESENT)
[2021-10-20 13:24] LABS: MAGNESIUM 2.03 mg/dL (1.60-2.60)
[2021-10-20 14:15] LABS: ERYTHROCYTE SEDIMENTATION RATE 0 mm/hr (0-20)
== END ==
LOC: LAB 12:33
PROVIDERS: Internal Medicine
DX: Z12.5 Encounter for screening for malignant neoplasm of prostate (principal); I10 Essential (primary) hypertension; E11.9 Type 2 diabetes mellitus without complications; K90.9 Intestinal malabsorption, unspecified; E55.9 Vitamin D deficiency, unspecified; R79.89 Other specified abnormal findings of blood chemistry; I47.1 Supraventricular tachycardia; J20.9 Acute bronchitis, unspecified; Z28.3 Underimmunization status

== ENCOUNTER 2022-01-24 02:39 | Emergency (ER) | payer MEDICARE ==
[~2022-01-24] VITALS: Ht 188 cm; Wt 126.4 kg
[2022-01-24] MEDS ORDERED: MELATIN 3 MG-11 TAB PO (02:59)
[2022-01-24 04:11] LABS: BASO # 0.03 K/mm3 (0.02-0.10); EOS # 0.16 K/mm3 (0.04-0.40); EOS % 2.1 % (0.0-4.0); HEMATOCRIT 46.5 % (42.0-52.0); HEMOGLOBIN 15.8 g/dL (13.5-18.0); LYMPH# 1.75 K/mm3 (1.50-4.00); MEAN CELL VOLUME 86 fl (78-100); MEAN CORPUSCULAR HEMOGLOBIN 29 pg (27-31); MEAN CORPUSCULAR HGB CONC 34 g/dL (33-37); MEAN PLATELET VOLUME 8.3 fl (7.4-10.4); MONO # 0.54 K/mm3 (0.20-0.80); NEU # 5.07 K/mm3 (1.40-6.50); PLATELET COUNT 172 K/mm3 (130-400); RED CELL DISTRIBUTION WIDTH 13.6 % (11.5-14.5); WHITE BLOOD COUNT 7.6 K/mm3 (4.8-10.8)
[2022-01-24 04:20] LABS: POTASSIUM 3.5 mmol/L (3.5-5.1)
[2022-01-24 04:21] LABS: CALCIUM 9.1 mg/dL (8.3-10.5)
[2022-01-24 04:34] LABS: TROPONIN-I 0.068 ng/mL (<0.030)
[2022-01-24 09:39] VITALS: BP 151/98
[2022-01-24] MEDS ORDERED: METOPROLOL SUCC50 M1 PO (09:45)
== END 2022-01-24 10:00 | disposition home or self-care (01) ==
LOC: ED 02:39
PROVIDERS: Family Medicine
DX: I47.1 Supraventricular tachycardia (principal); R77.8 Other specified abnormalities of plasma proteins; E88.81 Metabolic syndrome and other insulin resistance; E66.8 Other obesity; Z68.35 Body mass index [BMI] 35.0-35.9, adult; Z28.310 Unvaccinated for COVID-19

== ENCOUNTER → 2022-03-09 | Outpatient (CLI) | payer MEDICARE ==
[~2022-03-09] MED LIST changes: +MELATIN 3 MG-11 TAB PO; +METOPROLOL SUCC50 M1 PO
[2022-03-09 16:48] LABS: BASO # 0.04 K/mm3 (0.02-0.10); EOS # 0.21 K/mm3 (0.04-0.40); HEMATOCRIT 48.6 % (42.0-52.0); HEMOGLOBIN 16.5 g/dL (13.5-18.0); LYMPH# 2.46 K/mm3 (1.50-4.00); MEAN CELL VOLUME 86 fl (78-100); MEAN CORPUSCULAR HEMOGLOBIN 29 pg (27-31); MEAN CORPUSCULAR HGB CONC 34 g/dL (33-37); MEAN PLATELET VOLUME 8.5 fl (7.4-10.4); MONO # 0.84 K/mm3 (0.20-0.80); NEU # 6.86 K/mm3 (1.40-6.50); PLATELET COUNT 236 K/mm3 (130-400); RED BLOOD COUNT 5.65 M/mm3 (4.20-5.60); RED CELL DISTRIBUTION WIDTH 13.1 % (11.5-14.5); WHITE BLOOD COUNT 10.4 K/mm3 (4.8-10.8)
[2022-03-09 17:04] LABS: PROTHROMBIN TIME 9.9 SECONDS (9.0-12.0)
[2022-03-09 17:19] LABS: ALBUMIN 4.4 g/dL (3.4-4.8); POTASSIUM 4.3 mmol/L (3.5-5.1)
[2022-03-09 17:20] LABS: CALCIUM 9.7 mg/dL (8.3-10.5)
[2022-03-09 17:21] LABS: TOTAL PROTEIN 7.6 g/dL (6.2-8.1)
[2022-03-09 17:23] LABS: TOTAL BILIRUBIN 0.7 mg/dL (0.2-1.2)
[2022-03-09 17:25] LABS: URINE WBC 0 /hpf (0-3)
[2022-03-09 17:26] LABS: URINE APPEARANCE CLEAR; URINE BILIRUBIN NEGATIVE (NEGATIVE); URINE BLOOD 50 ery/uL (NEGATIVE); URINE COLOR YELLOW; URINE GLUCOSE NEGATIVE (NEGATIVE); URINE KETONE NEGATIVE (NEGATIVE); URINE LEUKOCYTE ESTERASE NEGATIVE (NEGATIVE); URINE MUCUS PRESENT (NOT PRESENT); URINE NITRATE NEGATIVE (NEGATIVE); URINE PROTEIN(semi-quant) 1+ (NEGATIVE); URINE UROBILINOGEN NORMAL (NORMAL)
== END ==
LOC: LAB 16:24
PROVIDERS: Internal Medicine
DX: Z01.818 Encounter for other preprocedural examination (principal); E11.9 Type 2 diabetes mellitus without complications

== ENCOUNTER 2022-06-11 08:35 | Outpatient (RCR) | payer MEDICARE | END 2022-07-08 | disposition home or self-care (01) | LOC: CARDREHAB | DX: Z48.812 Encounter for surgical aftercare following surgery on the circulatory system (principal); Z95.1 Presence of aortocoronary bypass graft ==

== ENCOUNTER → 2022-07-16 | Outpatient (CLI) | payer MEDICARE ==
[2022-07-16 11:11] LABS: BASO # 0.01 K/mm3 (0.02-0.10); EOS # 0.19 K/mm3 (0.04-0.40); EOS % 1.7 % (0.0-4.0); HEMATOCRIT 45.2 % (42.0-52.0); HEMOGLOBIN 15.2 g/dL (13.5-18.0); LYMPH# 2.15 K/mm3 (1.50-4.00); MEAN CELL VOLUME 86 fl (78-100); MEAN CORPUSCULAR HEMOGLOBIN 29 pg (27-31); MEAN CORPUSCULAR HGB CONC 34 g/dL (33-37); MEAN PLATELET VOLUME 8.8 fl (7.4-10.4); MONO # 0.76 K/mm3 (0.20-0.80); NEU # 8.19 K/mm3 (1.40-6.50); PLATELET COUNT 211 K/mm3 (130-400); RED BLOOD COUNT 5.24 M/mm3 (4.20-5.60); WHITE BLOOD COUNT 11.4 K/mm3 (4.8-10.8)
[2022-07-16 11:33] LABS: POTASSIUM 3.2 mmol/L (3.5-5.1)
[2022-07-16 11:35] LABS: CALCIUM 9.1 mg/dL (8.3-10.5)
[2022-07-16 11:36] LABS: TOTAL PROTEIN 6.6 g/dL (6.2-8.1)
[2022-07-16 11:38] LABS: TOTAL BILIRUBIN 1.1 mg/dL (0.2-1.2)
[2022-07-16 11:43] LABS: MAGNESIUM 1.77 mg/dL (1.60-2.60)
[2022-07-16 12:43] LABS: ERYTHROCYTE SEDIMENTATION RATE 5 mm/hr (0-20)
[2022-07-17 18:07] LABS: FOLLICLE STIMULATING HORMONE 6.6 mIU/mL (1.0-12.0); LUTENIZING HORMONE 1.8 mIU/mL (0.6-12.1); PROLACTIN AMS 46.1 ng/mL (3.5-19.4)
== END ==
LOC: LAB 10:29
PROVIDERS: Internal Medicine
DX: K90.9 Intestinal malabsorption, unspecified (principal); I10 Essential (primary) hypertension; E78.2 Mixed hyperlipidemia; E11.9 Type 2 diabetes mellitus without complications; I25.10 Atherosclerotic heart disease of native coronary artery without angina pectoris; E23.0 Hypopituitarism

== ENCOUNTER → 2022-11-12 | Outpatient (CLI) | payer MEDICARE ==
[2022-11-12 16:48] LABS: BASO # 0.01 K/mm3 (0.02-0.10); EOS # 0.03 K/mm3 (0.04-0.40); EOS % 0.5 % (0.0-4.0); HEMATOCRIT 47.7 % (42.0-52.0); HEMOGLOBIN 15.8 g/dL (13.5-18.0); LYMPH# 1.31 K/mm3 (1.50-4.00); MEAN CELL VOLUME 88 fl (78-100); MEAN CORPUSCULAR HEMOGLOBIN 29 pg (27-31); MEAN CORPUSCULAR HGB CONC 33 g/dL (33-37); MEAN PLATELET VOLUME 8.6 fl (7.4-10.4); MONO # 0.83 K/mm3 (0.20-0.80); NEU # 4.42 K/mm3 (1.40-6.50); PLATELET COUNT 157 K/mm3 (130-400); RED CELL DISTRIBUTION WIDTH 13.8 % (11.5-14.5); WHITE BLOOD COUNT 6.6 K/mm3 (4.8-10.8)
[2022-11-12 16:58] LABS: ALBUMIN 4.4 g/dL (3.4-4.8); POTASSIUM 3.9 mmol/L (3.5-5.1)
[2022-11-12 16:59] LABS: CALCIUM 10.1 mg/dL (8.3-10.5)
[2022-11-12 17:01] LABS: TOTAL PROTEIN 7.2 g/dL (6.2-8.1)
[2022-11-12 17:02] LABS: TOTAL BILIRUBIN 1.3 mg/dL (0.2-1.2)
[2022-11-12 17:08] LABS: MAGNESIUM 1.93 mg/dL (1.60-2.60)
[2022-11-12 17:48] LABS: URINE APPEARANCE HAZY; URINE COLOR ORANGE; URINE GLUCOSE NEGATIVE (NEGATIVE); URINE PROTEIN(semi-quant) 2+ (NEGATIVE)
[2022-11-12 17:49] LABS: URINE BILIRUBIN 1+ (NEGATIVE); URINE BLOOD 50 ery/uL (NEGATIVE); URINE KETONE TRACE (NEGATIVE); URINE LEUKOCYTE ESTERASE NEGATIVE (NEGATIVE); URINE NITRATE NEGATIVE (NEGATIVE); URINE UROBILINOGEN 1 mg/dL (NORMAL)
[2022-11-12 17:53] LABS: ERYTHROCYTE SEDIMENTATION RATE 33 mm/hr (0-20); URINE MUCUS PRESENT (NOT PRESENT)
== END ==
LOC: RAD 15:52
PROVIDERS: Internal Medicine
DX: Z01.818 Encounter for other preprocedural examination (principal); E11.9 Type 2 diabetes mellitus without complications; I25.10 Atherosclerotic heart disease of native coronary artery without angina pectoris; Z95.1 Presence of aortocoronary bypass graft

== ENCOUNTER → 2023-04-19 | Outpatient (CLI) | payer MEDICARE ==
[2023-04-19 10:17] LABS: BASO # 0.03 K/mm3 (0.02-0.10); EOS # 0.38 K/mm3 (0.04-0.40); EOS % 4.6 % (0.0-4.0); HEMATOCRIT 48.6 % (42.0-52.0); HEMOGLOBIN 15.6 g/dL (13.5-18.0); LYMPH# 1.99 K/mm3 (1.50-4.00); MEAN CELL VOLUME 82 fl (78-100); MEAN CORPUSCULAR HEMOGLOBIN 26 pg (27-31); MEAN CORPUSCULAR HGB CONC 32 g/dL (33-37); MEAN PLATELET VOLUME 8.4 fl (7.4-10.4); MONO # 0.66 K/mm3 (0.20-0.80); NEU # 5.15 K/mm3 (1.40-6.50); PLATELET COUNT 232 K/mm3 (130-400); RED BLOOD COUNT 5.92 M/mm3 (4.20-5.60); RED CELL DISTRIBUTION WIDTH 13.8 % (11.5-14.5); WHITE BLOOD COUNT 8.2 K/mm3 (4.8-10.8)
[2023-04-19 10:29] LABS: POTASSIUM 4.2 mmol/L (3.5-5.1)
[2023-04-19 10:30] LABS: CALCIUM 9.1 mg/dL (8.3-10.5)
[2023-04-19 10:31] LABS: TOTAL PROTEIN 6.7 g/dL (6.2-8.1)
[2023-04-19 10:33] LABS: TOTAL BILIRUBIN 0.8 mg/dL (0.2-1.2)
[2023-04-19 10:38] LABS: MAGNESIUM 1.58 mg/dL (1.60-2.60)
[2023-04-19 10:51] LABS: URINE APPEARANCE CLEAR; URINE BILIRUBIN NEGATIVE (NEGATIVE); URINE BLOOD NEGATIVE (NEGATIVE); URINE COLOR YELLOW; URINE GLUCOSE NEGATIVE (NEGATIVE); URINE KETONE NEGATIVE (NEGATIVE); URINE LEUKOCYTE ESTERASE TRACE (NEGATIVE); URINE MUCUS PRESENT (NOT PRESENT); URINE NITRATE NEGATIVE (NEGATIVE); URINE PROTEIN(semi-quant) 1+ (NEGATIVE); URINE UROBILINOGEN NORMAL (NORMAL)
== END ==
LOC: LAB 09:44
PROVIDERS: Nurse Practitioner Family
DX: Z12.5 Encounter for screening for malignant neoplasm of prostate (principal); E11.9 Type 2 diabetes mellitus without complications; I10 Essential (primary) hypertension; I25.10 Atherosclerotic heart disease of native coronary artery without angina pectoris; K90.9 Intestinal malabsorption, unspecified; I47.1 Supraventricular tachycardia

== ENCOUNTER → 2023-08-05 | Outpatient (REF) | payer MEDICARE | LOC: LAB 17:39 | DX: Z20.822 Contact with and (suspected) exposure to COVID-19 (principal) ==

== ENCOUNTER → 2023-08-30 | Day surgery (SDC) | payer MEDICARE | LOC: MSO 07:26 | DX: Z12.11 Encounter for screening for malignant neoplasm of colon (principal); D17.1 Benign lipomatous neoplasm of skin and subcutaneous tissue of trunk; D12.2 Benign neoplasm of ascending colon; D12.3 Benign neoplasm of transverse colon; F17.210 Nicotine dependence, cigarettes, uncomplicated | CPT/HCPCS: J2704; J3010; J7120 ==

== ENCOUNTER → 2023-12-14 | Outpatient (CLI) | payer MEDICARE ==
[2023-12-14 09:42] LABS: BASO # 0.03 K/mm3 (0.02-0.10); EOS # 0.37 K/mm3 (0.04-0.40); EOS % 4.3 % (0.0-4.0); HEMATOCRIT 55.2 % (42.0-52.0); HEMOGLOBIN 18.4 g/dL (13.5-18.0); LYMPH# 2.28 K/mm3 (1.50-4.00); MEAN CELL VOLUME 85 fl (78-100); MEAN CORPUSCULAR HEMOGLOBIN 28 pg (27-31); MEAN CORPUSCULAR HGB CONC 33 g/dL (33-37); MEAN PLATELET VOLUME 8.6 fl (7.4-10.4); MONO # 0.62 K/mm3 (0.20-0.80); NEU # 5.26 K/mm3 (1.40-6.50); PLATELET COUNT 191 K/mm3 (130-400); RED BLOOD COUNT 6.52 M/mm3 (4.20-5.60); RED CELL DISTRIBUTION WIDTH 13.1 % (11.5-14.5); WHITE BLOOD COUNT 8.6 K/mm3 (4.8-10.8)
[2023-12-14 10:00] LABS: CALCIUM 9.3 mg/dL (8.3-10.5)
[2023-12-14 10:01] LABS: TOTAL PROTEIN 6.7 g/dL (6.2-8.1)
[2023-12-14 10:08] LABS: MAGNESIUM 1.85 mg/dL (1.60-2.60)
[2023-12-14 22:35] LABS: TESTOSTERONE 338 ng/dL (221-716)
== END ==
LOC: LAB 09:14
PROVIDERS: Internal Medicine
DX: K90.9 Intestinal malabsorption, unspecified (principal); I25.10 Atherosclerotic heart disease of native coronary artery without angina pectoris; E11.9 Type 2 diabetes mellitus without complications; I10 Essential (primary) hypertension; E23.0 Hypopituitarism

== ENCOUNTER → 2024-06-09 | Outpatient (CLI) | payer MEDICARE ==
[2024-06-09 10:01] LABS: URINE WBC 0 /hpf (0-3)
[2024-06-09 10:12] LABS: BASO # 0.03 K/mm3 (0.02-0.10); EOS # 0.37 K/mm3 (0.04-0.40); EOS % 4.9 % (0.0-4.0); HEMATOCRIT 47.5 % (42.0-52.0); HEMOGLOBIN 16.6 g/dL (13.5-18.0); LYMPH# 1.99 K/mm3 (1.50-4.00); MEAN CELL VOLUME 87 fl (78-100); MEAN CORPUSCULAR HEMOGLOBIN 30 pg (27-31); MEAN CORPUSCULAR HGB CONC 35 g/dL (33-37); MEAN PLATELET VOLUME 8.7 fl (7.4-10.4); MONO # 0.44 K/mm3 (0.20-0.80); NEU # 4.74 K/mm3 (1.40-6.50); PLATELET COUNT 187 K/mm3 (130-400); RED BLOOD COUNT 5.49 M/mm3 (4.20-5.60); RED CELL DISTRIBUTION WIDTH 12.5 % (11.5-14.5); WHITE BLOOD COUNT 7.6 K/mm3 (4.8-10.8)
[2024-06-09 10:39] LABS: URINE APPEARANCE CLEAR (CLEAR); URINE BILIRUBIN NEGATIVE (NEGATIVE); URINE BLOOD NEGATIVE (NEGATIVE); URINE COLOR YELLOW (YELLOW); URINE GLUCOSE TRACE (NEGATIVE); URINE KETONE NEGATIVE (NEGATIVE); URINE NITRATE NEGATIVE (NEGATIVE); URINE PROTEIN(semi-quant) 1+ (NEGATIVE)
[2024-06-09 10:40] LABS: URINE LEUKOCYTE ESTERASE NEGATIVE (NEGATIVE); URINE MUCUS PRESENT (NOT PRESENT)
[2024-06-09 10:42] LABS: ALBUMIN 4.3 g/dL (3.4-4.8)
[2024-06-09 10:44] LABS: CALCIUM 9.2 mg/dL (8.3-10.5)
[2024-06-09 10:45] LABS: TOTAL PROTEIN 7.1 g/dL (6.2-8.1)
[2024-06-09 10:47] LABS: TOTAL BILIRUBIN 0.8 mg/dL (0.2-1.2)
[2024-06-09 10:51] LABS: MAGNESIUM 1.83 mg/dL (1.60-2.60)
== END ==
LOC: LAB 09:47
PROVIDERS: Internal Medicine
DX: Z12.11 Encounter for screening for malignant neoplasm of colon (principal); K90.9 Intestinal malabsorption, unspecified; I10 Essential (primary) hypertension; I25.10 Atherosclerotic heart disease of native coronary artery without angina pectoris; E11.9 Type 2 diabetes mellitus without complications